=== PATIENT | female | born 1950 | race Caucasian/White ===

== ENCOUNTER 2020-02-03 06:27 | Emergency (ER) | payer OTHER ==
[~2020-02-03] VITALS: Ht 149.9 cm; Wt 80.3 kg
[2020-02-03] MEDS ORDERED: XANAX0.25 MG (06:45)
[2020-02-03] MEDS ORDERED: SIMVASTATIN5 MG (06:45)
[2020-02-03] MEDS ORDERED: PROZAC20 MG (06:45)
[2020-02-03] MEDS ORDERED: COZAAR25 MG (06:46)
[2020-02-03] MEDS ORDERED: ASPIR 8181 MG (06:46)
[2020-02-03] MEDS ORDERED: KATERZIA1 MG/1 ML (06:46)
[2020-02-03] MEDS ORDERED: MONTELUKAST SODI4 M1 (06:46)
[2020-02-03] MEDS ORDERED: HYDROCODONE-HO1 EAC1 (06:47)
[2020-02-03] MEDS ORDERED: BREO ELLIPTA 21 EACH (06:47)
[2020-02-03] MEDS ORDERED: SPIRIVA RESPIMAT4 G1 (06:47)
[2020-02-03] MEDS ORDERED: MYSOLINE50 MG (06:47)
== END 2020-02-04 13:20 | disposition home or self-care (01) ==
LOC: ER 06:27
DX: K57.92 Diverticulitis of intestine, part unspecified, without perforation or abscess without bleeding (principal); E87.6 Hypokalemia; K59.09 Other constipation

== ENCOUNTER 2020-03-10 07:30 | Day surgery (SDC) | payer OTHER ==
[~2020-03-10 07:30] MED LIST: ASPIR 8181 MG; BREO ELLIPTA 21 EACH; COZAAR25 MG; HYDROCODONE-HO1 EAC1; KATERZIA1 MG/1 ML; MONTELUKAST SODI4 M1; MYSOLINE50 MG; PROZAC20 MG; SIMVASTATIN5 MG; SPIRIVA RESPIMAT4 G1; XANAX0.25 MG
== END 2020-03-10 13:25 | disposition home or self-care (01) ==
LOC: AMB-ENDOS 07:30
PROVIDERS: ATTEND Colon & Rectal Surgery
DX: K62.89 Other specified diseases of anus and rectum (principal); K57.32 Diverticulitis of large intestine without perforation or abscess without bleeding; K57.30 Diverticulosis of large intestine without perforation or abscess without bleeding; K64.1 Second degree hemorrhoids